=== PATIENT | male | born 1930 | race Caucasian/White ===

== ENCOUNTER 2017-06-13 09:24 | Day surgery (SDC) | payer OTHER ==
[2017-06-09 09:12] VITALS: BMI 18.3
[~2017-06-13 09:24] MED LIST: CYCLOPENTOLATE HCL 1% OPHTH SOLN 2 ML BOTTLE OD SCH; GENTAMICIN SULFATE 0.3% OPHTHALMIC (EYE DROPS) 5ML BOTTLE OD SCH; KETOROLAC TROMETHAMINE 0.5% 5 ML BOTTLE OPTHALMIC OD SCH; PHENYLEPHRINE 2.5% OPHTH SOLN 15 ML BOTTLE OD SCH; TROPICAMIDE 1% OPHTH SOLN 15 ML BOTTLE OD SCH
[2017-06-13] MEDS: PHENYLEPHRINE 2.5% OPHTH SOLN 15 ML BOTTLE ONE ×5 (10:05→10:25)
[2017-06-13] MEDS: TROPICAMIDE 1% OPHTH SOLN 15 ML BOTTLE ONE ×5 (10:05→10:25)
[2017-06-13] MEDS: CYCLOPENTOLATE HCL 1% OPHTH SOLN 2 ML BOTTLE ONE ×5 (10:05→10:25)
[2017-06-13] MEDS: KETOROLAC TROMETHAMINE 0.5% 5 ML BOTTLE OPTHALMIC ONE ×5 (10:05→10:25)
[2017-06-13] MEDS: GENTAMICIN SULFATE 0.3% OPHTHALMIC (EYE DROPS) 5ML BOTTLE ONE ×5 (10:05→10:25)
[2017-06-13] MEDS ORDERED: PHENYLEPHRINE 2.5% OPHTH SOLN 15 ML BOTTLE ONE (10:07)
[2017-06-13] MEDS ORDERED: POVIDONE-IODINE 5% OPHTHALMIC PREP 30 ML SOLUTION ONE (11:00)
[2017-06-13] MEDS ORDERED: LIDOCAINE HCL/PF 2% SDV 5ML VIAL ONE (11:00)
[2017-06-13] MEDS ORDERED: ACETYLCHOLINE 1:100 INTRA-OCUL 20 MG/2 ML KIT ONE (11:01)
[2017-06-13] MEDS ORDERED: BUPIVACAINE HCL/PF 0.5% (5MG/ML) 10 ML VIAL ONE (11:01)
[2017-06-13] MEDS ORDERED: CARBACHOL 0.01% INTRA-OCULAR 1.5 ML VIAL ONE (11:01)
[2017-06-13] MEDS ORDERED: MIDAZOLAM HCL 2 MG/2 ML SINGLE DOSE VIAL ONE (11:34)
[2017-06-13] MEDS ORDERED: ACETAMINOPHEN 325 MG TABLET (FP) PO PRN (12:19)
[2017-06-13 12:42] VITALS: TEMP 97.6
[2017-06-13 13:07] VITALS: BP 122/54; PULSE 54
--- NOTE | 2017-06-13 14:27 | OP ---
DATE OF OPERATION: 06/13/2017 PREOPERATIVE DIAGNOSIS: Cataract, right eye. POSTOPERATIVE DIAGNOSIS: Cataract, right eye. PROCEDURES: Cataract extraction via phacoemulsification, with insertion of posterior chamber lens implant, right eye. SURGEON: Scott Kramer MD ENCYCLOPEDIA RESEARCH WORKER SURGEON: Rosario Garcia MD ANESTHESIA: Regional with sedation. COMPLICATIONS: None. ESTIMATED BLOOD LOSS: Less than 1 mL. SPECIMENS: None. PROCEDURE: The patient was identified in the holding area. After all risks, benefits and alternatives were explained to the patient, informed consent was obtained. The right eye was marked with a marking pen. Patient entered the operating room on an eye stretcher. After a formal timeout was performed, a 3-mL injection of equal parts 2% lidocaine and epinephrine and 0.5% Marcaine was given around the right eye. The right eye was then prepped and draped in the usual sterile fashion. An eyelid speculum was placed beneath the eyelid of the right eye. A supratemporal paracentesis incision was created using a 15-degree blade. Viscoelastic was injected into the anterior chamber. A 2.4-mm keratome blade was used to make infratemporal incision. A 360-degree continuous curvilinear capsulorhexis was then created using a bent cystitome and Utrata forceps. Hydrodissection was performed using balanced saline solution on a cannula. Phacoemulsification was introduced to dissemble and remove the nucleus in its entirety. Irrigation/aspiration was then used to remove any remaining cortical material from the eye and the capsular bag was refilled using viscoelastic. An Edmundo model SN60WF with a power of 21.5 diopters, serial number [id number], was inspected, and found to be defect-free, and injected into the capsular bag. Irrigation/aspiration was used to remove any remaining viscoelastic from the eye. The anterior chamber was reformed using balanced saline solution. Intracameral injections of Miochol and Miostat were then administered and the pupil came down and was round. All wounds were hydrated with balanced saline solution and noted to be watertight. Upon inspection, the anterior chamber was deep, the lens was perfectly centered in the capsular bag, there was a red reflex present, and the eye had an adequate pressure. Topical antibiotic eye drops and ointment were then administered to the right eye. The right eye was patched and shielded. The patient tolerated the procedure well, and left the operating room in stable condition, to follow up in the [facility] tomorrow morning at 9:00. SCOTT KRAMER M.D. [id number]
== END 2017-06-13 13:10 | disposition home or self-care (01) ==
LOC: FASU 09:24
PROVIDERS: ATTEND Ophthalmology
PROC: 08RJ3JZ Replacement of Right Lens with Synthetic Substitute, Percutaneous Approach (ICD-10-PCS; principal; 2017-06-13 11:38)
DX: H26.8 Other specified cataract (principal)

== ENCOUNTER 2017-09-05 08:24 | Day surgery (SDC) | payer OTHER ==
[2017-08-29 13:22] VITALS: BMI 18.3
[~2017-09-05 08:24] MED LIST changes: -CYCLOPENTOLATE HCL 1% OPHTH SOLN 2 ML BOTTLE OD SCH; +CYCLOPENTOLATE HCL 1% OPHTH SOLN 2 ML BOTTLE OS SCH; -GENTAMICIN SULFATE 0.3% OPHTHALMIC (EYE DROPS) 5ML BOTTLE OD SCH; +GENTAMICIN SULFATE 0.3% OPHTHALMIC (EYE DROPS) 5ML BOTTLE OS SCH; -KETOROLAC TROMETHAMINE 0.5% 5 ML BOTTLE OPTHALMIC OD SCH; +KETOROLAC TROMETHAMINE 0.5% 5 ML BOTTLE OPTHALMIC OS SCH; -PHENYLEPHRINE 2.5% OPHTH SOLN 15 ML BOTTLE OD SCH; +PHENYLEPHRINE 2.5% OPHTH SOLN 15 ML BOTTLE OS SCH; -TROPICAMIDE 1% OPHTH SOLN 15 ML BOTTLE OD SCH; +TROPICAMIDE 1% OPHTH SOLN 15 ML BOTTLE OS SCH
[2017-09-05] MEDS: CYCLOPENTOLATE HCL 1% OPHTH SOLN 2 ML BOTTLE ONE ×5 (08:55→09:15)
[2017-09-05] MEDS: PHENYLEPHRINE 2.5% OPHTH SOLN 15 ML BOTTLE ONE ×5 (08:55→09:15)
[2017-09-05] MEDS: KETOROLAC TROMETHAMINE 0.5% 5 ML BOTTLE OPTHALMIC ONE ×5 (08:55→09:15)
[2017-09-05] MEDS: TROPICAMIDE 1% OPHTH SOLN 15 ML BOTTLE ONE ×5 (08:55→09:15)
[2017-09-05] MEDS: GENTAMICIN SULFATE 0.3% OPHTHALMIC (EYE DROPS) 5ML BOTTLE ONE ×5 (08:55→09:15)
[2017-09-05] MEDS ORDERED: MIDAZOLAM HCL 2 MG/2 ML SINGLE DOSE VIAL ONE (09:40)
[2017-09-05] MEDS ORDERED: PROPOFOL 20 ML ONE (09:40)
[2017-09-05] MEDS ORDERED: LIDOCAINE HCL/PF 2% SDV 5ML VIAL ONE (09:41)
[2017-09-05] MEDS ORDERED: POVIDONE-IODINE 5% OPHTHALMIC PREP 30 ML SOLUTION ONE (09:49)
[2017-09-05] MEDS ORDERED: BUPIVACAINE HCL/PF 0.5% (5MG/ML) 10 ML VIAL ONE (09:49)
[2017-09-05] MEDS ORDERED: ACETYLCHOLINE 1:100 INTRA-OCUL 20 MG/2 ML KIT ONE (09:49)
[2017-09-05] MEDS ORDERED: CARBACHOL 0.01% INTRA-OCULAR 1.5 ML VIAL ONE (09:58)
[2017-09-05] MEDS ORDERED: ACETAMINOPHEN 325 MG TABLET (FP) PO PRN (11:12)
[2017-09-05 11:53] VITALS: TEMP 97.6
[2017-09-05 12:07] VITALS: BP 122/58; PULSE 54
--- NOTE | 2017-09-05 14:47 | OP ---
DATE OF OPERATION: 09/05/2017 PREOPERATIVE DIAGNOSIS: Cataract, left eye. POSTOPERATIVE DIAGNOSIS: Cataract, left eye. PROCEDURE: Cataract extraction via phacoemulsification with insertion of posterior chamber lens implant, left eye. ANESTHESIA: Regional with sedation. SURGEON: Scott Kramer MD RETAIL PLANNING MANAGER: Rosario Garcia MD ESTIMATED BLOOD LOSS: Less than 1 mL. COMPLICATIONS: None. SPECIMENS: None. DESCRIPTION OF PROCEDURE: The patient was identified in the holding area. After all risks, benefits, and alternatives were explained to the patient, informed consent was obtained. The left eye was marked with a marking pen. The patient then entered the operating room on an eye stretcher. After a formal timeout was performed, a 3-mL injection of equal parts of 2% lidocaine with epinephrine and 0.5% Marcaine was given around the left eye. The left eye was then prepped and draped in the usual sterile fashion. An eyelid speculum was placed beneath the eyelids of the left eye. An inferotemporal paracentesis incision was created using a 15-degree blade. A superotemporal incision was created using a 2.4-mm keratome blade. Viscoelastic was injected into the anterior chamber. A 360-degree, continuous curvilinear capsulorrhexis was then created using bent cystotome and Utrata forceps. Hydrodissection was performed using balanced saline solution on a cannula. Phacoemulsification was introduced to disassemble and remove the nucleus in its entirety. Irrigation/aspiration was used to remove any remaining cortical material from the eye. The capsular bag was refilled using viscoelastic. An Edmundo model SN60WF with a power of 19.5 diopters, serial number [id number] was inspected and found to be defect free and injected into the capsular bag. Irrigation/aspiration was used to remove any remaining viscoelastic from the eye. The anterior chamber was reformed using balanced saline solution. Intracameral injections of Miochol and Miostat were then injected, and the pupil came down and was round. All wounds were hydrated with balanced saline solution and noted to be watertight. The anterior chamber was deep. There was a red reflex present. The eye had an adequate pressure, and the lens was perfectly centered in the capsular bag. Topical antibiotic eye drops and ointment were then administered to the left eye. The eyelid speculum was removed from the left eye. The left eye was patched and shielded. The patient tolerated the procedure well and left the operating room in stable condition to follow up in the eye clinic tomorrow morning at 9:00. SCOTT KRAMER M.D. [id number]
== END 2017-09-05 12:20 | disposition home or self-care (01) ==
LOC: FASU 08:24
PROVIDERS: ATTEND Ophthalmology
PROC: 08RK3JZ Replacement of Left Lens with Synthetic Substitute, Percutaneous Approach (ICD-10-PCS; principal; 2017-09-05 10:30)
DX: H26.9 Unspecified cataract (principal)